=== PATIENT | male | born 1955 | race Two or more races ===

== ENCOUNTER → 2017-10-04 | Emergency (ER) | payer SELFPAY ==
[~2017-10-04] VITALS: Ht 172.7 cm; Wt 74.8 kg
[2017-10-04 16:43] VITALS: BP 148/90
== END | disposition home or self-care (01) ==
LOC: ER 16:40
DX: F10.129 Alcohol abuse with intoxication, unspecified (principal)
CPT/HCPCS: 99283; A4606; Z7610